=== PATIENT | female | born 1985 | race Caucasian/White ===

== ENCOUNTER 2019-11-28 22:07 | Emergency (ER) | payer OTHER ==
[~2019-11-28] VITALS: Ht 152.4 cm; Wt 91.6 kg
[2019-11-28 22:22] VITALS: Ht 152.4 cm; Wt 91.6 kg
[2019-11-28 23:24] VITALS: BP 134/87
== END 2019-11-28 23:24 | disposition home or self-care (01) ==
LOC: ED 22:07
DX: F41.9 Anxiety disorder, unspecified (principal)

== ENCOUNTER 2020-05-29 18:24 | Emergency (ER) | payer OTHER | END 2020-05-29 20:48 | disposition left against medical advice (07) | LOC: ED 18:24 | DX: Z53.21 Procedure and treatment not carried out due to patient leaving prior to being seen by health care provider (principal) ==